=== PATIENT | male | born 1995 ===

== ENCOUNTER 2021-01-26 02:46 | Emergency (ER) | payer OTHER, SELFPAY ==
[2021-01-26 02:59] VITALS: BP 112/73; PULSE 74; RESP 16; TEMP 36.8; O2SAT 98; BMI 25.8
--- NOTE | 2021-01-26 03:12 | ED.CHESTPAIN ---
HPI - Chest Pain General Chief Complaint: General Medical Stated Complaint: Chest pain Time Seen by Provider: 01/26/21 02:57 Source: patient Mode of arrival: ambulatory Limitations: no limitations History of Present Illness HPI narrative: Patient with history of anxiety not taking any medication comes with with tingling sensation over the head left arm left leg and in the chest with chest pain patient does get this kind of feeling often for last few weeks has poor sleep a little anxious but no diagnosis has been made in the past. Patient does not smoke , no cocaine use no family history of coronary artery disease patient denies any shortness of breath no nausea or vomiting MD complaint: chest discomfort Related Data Previous Rx's Medication Instructions Recorded lorazepam [Ativan] 1 mg PO BEDTIME PRN #10 tab 01/26/21 Allergies Allergy/AdvReac Type Severity Reaction Status Date / Time No Known Allergies Allergy Unverified 06/25/20 19:29 [No Known Allergies*] Review of Systems Review of Systems: Constitutional : No Weight loss, No Fever, No Chills ENT/Mouth : No sore throat, No Rhinorrhea Eyes: No Eye Pain, No Swelling Cardiovascular : + Chest Pain, no palpitations Respiratory : No Cough, No Sputum, no shortness of breath Gastrointestinal : no Nausea, No Vomiting, No Diarrhea, No abdominal Pain, no black stools Genitourinary : No Dysuria, No Urinary Frequency Musculoskeletal : No joint pain, No Myalgias, No Joint Swelling Skin : No Skin Lesions, No rash Neuro : No Weakness, No Numbness, No Dizziness, No Headache Psych : No Anxiety/Panic, No Depression Heme/Lymph: No Bruising, No Lymphadenopathy Endocrine : No Polyuria, No Polydipsia All other systems reviewed and are negative [facility] Social History Social History Advance Directives: No Physical Exam Vital Signs: Vital Signs: Last Vital Signs Temp 98.3 F 01/26/21 02:59 Pulse 74 01/26/21 02:59 Resp 16 01/26/21 02:59 BP 112/73 01/26/21 02:59 Pulse Ox 98 01/26/21 02:59 Body Mass Index 25.8 Appearance: Alert. Oriented X3. No acute distress. Anxious Eyes: Pupils equal, round and reactive to light. ENT: Pharynx normal. Neck: Normal inspection. Neck supple. CVS: Normal heart rate and rhythm. Pulses normal. Respiratory: No respiratory distress. Breath sounds normal. Abdomen: Soft and nontender. Bowel sounds are present, no mass palpable, no CVA tenderness Skin: Skin warm and dry. Normal skin color. Normal skin turgor. Extremities: No lower extremity edema. Neuro: Oriented X 3. No motor deficit. No sensory deficit. MDM - Chest Pain MDM Narrative Medical decision making narrative: Patient's anxiety atypical chest pain with tingling all over the left side of the body EKG normal will prescribe him Ativan advised to follow with PCP ECG Data ECG #1: Attestation: I personally reviewed and interpreted this ECG as follows: Interpretation: Normal sinus rhythm heart rate 66 beats per minute normal intervals normal axis early repolarization changes no acute ischemia Discharge Plan Discharge Clinical Impression: Anxiety Chest pain Qualifiers: Chest pain type: unspecified Qualified Code(s): R07.9 - Chest pain, unspecified Patient Disposition: Home, Self-Care Instructions: Chest Pain (ED), Anxiety (ED) Additional Instructions: Take medication to relax in the night. Follow with PCP for any concern Your chest pain and symptoms are likely from anxiety Prescriptions: New lorazepam [Ativan] 1 mg tablet 1 mg PO BEDTIME PRN (Reason: anxiety) Qty: 10 RF: 0
--- NOTE | 2021-01-26 03:20 | ECG_ITS ---
Test Reason : CP Blood Pressure : / mmHG Vent. Rate : 066 BPM Atrial Rate : 066 BPM P-R Int : 198 ms QRS Dur : 076 ms QT Int : 374 ms P-R-T Axes : 066 085 052 degrees QTc Int : 392 ms Normal sinus rhythm Possible Left atrial enlargement Early repolarization Borderline ECG No previous ECGs available Referred By: Vargas Bucio Electronically Signed By:Michael Chong
[2021-01-26] MEDS: LORazepam 1 MG TABLET PO (03:36)
[2021-01-26 03:39] VITALS: PULSE 71; RESP 16
== END 2021-01-26 03:43 | disposition home or self-care (01) ==
LOC: HO.ED 03:25
PROVIDERS: Emergency Provider Internal Medicine
DX: R07.9 Chest pain, unspecified (principal); F41.9 Anxiety disorder, unspecified; Z91.14 Patient's other noncompliance with medication regimen
CPT/HCPCS: 93005; 99283; 99284

== ENCOUNTER 2023-03-23 17:07 | Emergency (ER) | payer BC, SELFPAY ==
[2023-03-23 17:10] VITALS: BP 136/74; PULSE 77; RESP 18; TEMP 36.9; O2SAT 97; BMI 25.1
--- NOTE | 2023-03-23 17:10 | ED.GENADULT ---
HPI - General Adult General Chief complaint: General Medical Stated complaint: leftsided stiffness..,neck back arm Time Seen by Provider: 03/23/23 18:37 Source: patient and family (Significant other) Mode of arrival: ambulatory History of Present Illness HPI narrative: 27-year-old male without significant past medical history presents for 2 months of intermittent numbness and tingling that affects the entire left side of his body to include the left side of his face over is a ear but this is not been associated with any unexplained weight loss, night sweats, fevers, chills, GI or symptoms. Patient denies any family history of early cardiac disease. Patient has been evaluated at his primary care provider's office, he has had a previous MRI which did not demonstrate any acute findings. Related Data Previous Rx's Medication Instructions Recorded lorazepam 1 mg tablet (Ativan) 1 mg PO BEDTIME PRN anxiety #10 01/26/21 tabs hydroxyzine HCl 25 mg tablet 25 mg PO TID PRN anxiety #14 tabs 03/23/23 Allergies Allergy/AdvReac Type Severity Reaction Status Date / Time No Known Allergies Allergy Unverified 06/25/20 19:29 [No Known Allergies*] Review of Systems Review of Systems: Pertinent positives and negatives as stated in HPI PMFSH Past Medical History Source: nursing notes reviewed Social History Social History Advance Directives: No Advance Directives Information Provided: No Physical Exam ED Vital Signs: Vital Signs - 24 hr 03/23/23 17:10 03/23/23 18:12 03/23/23 19:38 Temperature 98.4 F 98.4 F 98.2 F Pulse Rate 77 78 66 Respiratory Rate 18 18 18 Blood Pressure 136/74 117/79 110/76 Pulse Oximetry 97 97 97 Oxygen Delivery Method Room Air Room Air Room Air BMI result Body Mass Index 25.1 VITAL SIGNS: Reviewed. GENERAL: Well developed, well nourished, in no acute distress. HEAD: Normocephalic/atraumatic EYES: PERRLA, EOMI EARS: Ext canals without abnormality NOSE: Nares patent bilateral OROPHARYNX: no oral lesions noted, posterior pharynx clear NECK: Supple, no adenopathy LUNGS: Normal breath sounds. No adventitious sounds or accessory muscle use. SpO2<97> CARDIOVASCULAR: Regular rate and rhythm without noted murmurs, symmetrical peripheral pulses ABDOMEN: Soft, non-tender, non-distended with bowel sounds. MUSCULOSKELETAL: No tenderness, deformities, or effusions noted on gross inspection. EXTREMITIES: No cyanosis, clubbing or edema. SKIN: Inspection of the skin reveals no rashes NEUROLOGIC: Alert and oriented x 4. Strength and sensation to light touch were grossly intact x 4, no facial asymmetry, no pronator drift, cranial nerves 2-12 are grossly intact.. Course Course Course Narrative: This is a rapid medical exam. deferred additional HPI, ROS, PE to primary provider. 27 yo male with no known medical history here with shortness of breath, left arm/head/face/leg tingling/cramping intermittent 3 yrs. Has been seen at [facility] [place] [place] ED and for this. Per patient they found I had LVH on my EKG. Will obtain labs, EKG VSS Medical Decision Making Medical Decision Making MDM Narrative: Is a 27-year-old male with self endorsed history anxiety in comes in with complete left-sided numbness that is inconsistent with intracranial etiology given the involvement the entire left side of his head. His symptoms do come and go but he has not been able to identify or further been worked up for his anxiety. I reviewed all investigations and my interpretation is as patient has suffered from an anxiety attack, he will go home with a prescription of hydroxyzine and instructed to have more in-depth conversation with his primary care provider. Differential Diagnosis Please see the discussion above Lab Data Please see the discussion above 03/23/23 17:26 03/23/23 17:26 Labs: Lab Results 03/23/23 03/23/23 03/23/23 Range/Units 17:26 17:26 17:26 WBC 3.8 L (4.8-10.8) X10*3/uL RBC 4.73 (4.60-5.80) X10*6/uL Hgb 13.9 L (14.0-18.0) g/dl Hct 40.6 L (42.0-52.0) % MCV 85.8 (80.0-98.0) fL MCH 29.4 (27.0-33.0) pg MCHC 34.2 (31.0-36.0) g/dl RDW 12.1 (11.0-16.0) % Plt Count 257 (160-400) X10*3/uL MPV 9.7 (9.4-12.4) fL Immature Gran % (Auto) 0.3 (0.0-0.4) % Neut % (Auto) 47.0 (45-73) % Lymph % (Auto) 40.8 H (20-40) % [place] % (Auto) 8.7 (2-11) % Eos % (Auto) 2.1 (0-4) % Baso % (Auto) 1.1 (0-2) % Lymph # (Auto) 1.6 (1.2-4.9) X10*3/uL [place] # (Auto) 0.3 (0.1-1.2) X10*3/uL Eos # (Auto) 0.1 (0.0-0.4) X10*3/uL Baso # (Auto) 0.0 (0.0-0.2) X10*3/uL Abs Immat Gran (auto) 0.01 (0.00-0.03) X10*3/uL Absolute Neuts (auto) 1.8 L (2.0-8.3) x10*3/uL Absolute Nucleated RBC 0.000 (0.0-0.012) X10*3/uL Nucleated RBC % (auto) 0.0 (0.0-0.2) /100WBC PT (10.0-13.1) SEC INR (0.9-1.1) Sodium 139 (135-145) mmol/L Potassium 3.8 (3.3-5.1) mmol/L Chloride 104 (96-108) mmol/L Carbon Dioxide 23 (22-29) mmol/L Anion Gap 16 (12-20) BUN 12 (9-16) mg/dL Creatinine 0.92 (0.5-1.4) mg/dL Estim Creat Clear Calc 111.7 Estimated GFR > 60 Random Glucose 119 H (60-115) mg/dL Calcium 9.5 (8.4-10.2) mg/dL Magnesium 2.0 (1.6-2.6) mg/dL Total Bilirubin 0.6 (0.0-1.0) mg/dL Direct Bilirubin 0.1 (0.0-0.5) mg/dL AST 23 (5-37) U/L ALT 24 (0-40) U/L Alkaline Phosphatase 73 (39-117) U/L Troponin I High Sens < 2.7 (<3.5-35.0) ng/L Total Protein 7.4 (6.5-8.0) g/dL Albumin 4.3 (3.5-5.0) g/dL 03/23/23 Range/Units 17:26 WBC (4.8-10.8) X10*3/uL RBC (4.60-5.80) X10*6/uL Hgb (14.0-18.0) g/dl Hct (42.0-52.0) % MCV (80.0-98.0) fL MCH (27.0-33.0) pg MCHC (31.0-36.0) g/dl RDW (11.0-16.0) % Plt Count (160-400) X10*3/uL MPV (9.4-12.4) fL Immature Gran % (Auto) (0.0-0.4) % Neut % (Auto) (45-73) % Lymph % (Auto) (20-40) % [place] % (Auto) (2-11) % Eos % (Auto) (0-4) % Baso % (Auto) (0-2) % Lymph # (Auto) (1.2-4.9) X10*3/uL [place] # (Auto) (0.1-1.2) X10*3/uL Eos # (Auto) (0.0-0.4) X10*3/uL Baso # (Auto) (0.0-0.2) X10*3/uL Abs Immat Gran (auto) (0.00-0.03) X10*3/uL Absolute Neuts (auto) (2.0-8.3) x10*3/uL Absolute Nucleated RBC (0.0-0.012) X10*3/uL Nucleated RBC % (auto) (0.0-0.2) /100WBC PT 11.9 (10.0-13.1) SEC INR 1.0 (0.9-1.1) Sodium (135-145) mmol/L Potassium (3.3-5.1) mmol/L Chloride (96-108) mmol/L Carbon Dioxide (22-29) mmol/L Anion Gap (12-20) BUN (9-16) mg/dL Creatinine (0.5-1.4) mg/dL Estim Creat Clear Calc Estimated GFR Random Glucose (60-115) mg/dL Calcium (8.4-10.2) mg/dL Magnesium (1.6-2.6) mg/dL Total Bilirubin (0.0-1.0) mg/dL Direct Bilirubin (0.0-0.5) mg/dL AST (5-37) U/L ALT (0-40) U/L Alkaline Phosphatase (39-117) U/L Troponin I High Sens (<3.5-35.0) ng/L Total Protein (6.5-8.0) g/dL Albumin (3.5-5.0) g/dL Independent Interpretation I performed an independent interpretation of an: EKG Interpretation: Normal sinus rhythm, HR-74, no STEMI, MS/QRS/QTC is within normal limits. External Record Review External record reviewed: Prior outpatient labs Discharge Plan Discharge Clinical Impression: Anxiety Patient Disposition: Home, Self-Care Instructions: Anxiety (ED) Additional Instructions: 1. Follow up with your PCP in the next 1-2 days. Prescriptions: New hydroxyzine HCl 25 mg tablet 25 mg PO TID PRN (Reason: anxiety) Qty: 14 0RF No Action lorazepam [Ativan] 1 mg tablet 1 mg PO BEDTIME PRN (Reason: anxiety) Qty: 10 0RF Interventions: ED Discharge Assessment Last Done: 03/23/23 20:01 Discharge Date/Time: 03/23/23 20:05
--- NOTE | 2023-03-23 17:12 | ECG_ITS ---
Test Reason : l side weak Blood Pressure : / mmHG Vent. Rate : 074 BPM Atrial Rate : 074 BPM P-R Int : 180 ms QRS Dur : 076 ms QT Int : 358 ms P-R-T Axes : 071 081 045 degrees QTc Int : 397 ms Normal sinus rhythm Normal ECG When compared with ECG of 26-JAN-2021 02:54, No significant change was found Referred By: Alejandra Blackman Electronically Signed By:LEXY VALENTE MD
[2023-03-23 17:30] LABS: MANUAL DIFF FLAG NO
[2023-03-23 17:32] LABS: Basophils Percent Auto 1.1 % (0-2); Eosinophils Absolute Auto 0.1 X10*3/uL (0.0-0.4); Eosinophils Percent Auto 2.1 % (0-4); Hematocrit 40.6 % (42.0-52.0); Hemoglobin 13.9 g/dl (14.0-18.0); Imm Gran Abs Auto 0.01 X10*3/uL (0.00-0.03); Imm Gran Pct Auto 0.3 % (0.0-0.4); Lymphocytes Absolute Auto 1.6 X10*3/uL (1.2-4.9); Lymphocytes Percent Auto 40.8 % (20-40); Mean Corpuscular HGB Conc 34.2 g/dl (31.0-36.0); Mean Corpuscular Hemoglobin 29.4 pg (27.0-33.0); Mean Corpuscular Volume 85.8 fL (80.0-98.0); Mean Platelet Volume 9.7 fL (9.4-12.4); Monocytes Absolute Auto 0.3 X10*3/uL (0.1-1.2); Monocytes Percent Auto 8.7 % (2-11); Neutrophils Absolute Auto 1.8 x10*3/uL (2.0-8.3); Platelet Count 257 X10*3/uL (160-400); Red Blood Count 4.73 X10*6/uL (4.60-5.80); Red Cell Distribution Width 12.1 % (11.0-16.0); White Blood Count 3.8 X10*3/uL (4.8-10.8)
[2023-03-23 17:38] LABS: Prothrombin Time 11.9 SEC (10.0-13.1)
[2023-03-23 17:48] LABS: Alanine Aminotransferase 24 U/L (0-40); Albumin Level 4.3 g/dL (3.5-5.0); Alkaline Phosphatase 73 U/L (39-117); Anion Gap 16 (12-20); Aspartate Amino Transferase 23 U/L (5-37); Bilirubin Direct 0.1 mg/dL (0.0-0.5); Bilirubin Total 0.6 mg/dL (0.0-1.0); Blood Urea Nitrogen 12 mg/dL (9-16); Calcium 9.5 mg/dL (8.4-10.2); Carbon Dioxide 23 mmol/L (22-29); Chloride 104 mmol/L (96-108); Creatinine Clr Calc Pharmacy 111.7; Estimated Glomerular Filt Rate > 60; Glucose Random 119 mg/dL (60-115); Potassium 3.8 mmol/L (3.3-5.1); Sodium 139 mmol/L (135-145); Total Protein 7.4 g/dL (6.5-8.0)
[2023-03-23 17:58] LABS: Troponin-I High Sensitivity < 2.7 ng/L (<3.5-35.0)
[2023-03-23 18:12] VITALS: BP 117/79; PULSE 78; RESP 18; TEMP 36.9; O2SAT 97
[2023-03-23 19:38] VITALS: BP 110/76; PULSE 66; RESP 18; TEMP 36.8; O2SAT 97
== END 2023-03-23 20:05 | disposition home or self-care (01) ==
PROVIDERS: Nurse Practitioner Family; Emergency Provider Student in an Organized Health Care Education/Training Program
DX: F41.1 Generalized anxiety disorder (principal); F43.0 Acute stress reaction; R53.1 Weakness; Z79.899 Other long term (current) drug therapy
CPT/HCPCS: 36415; 80048; 80076; 83735; 84484; 85025; 85610; 93005; 99283; 99284

== ENCOUNTER 2023-03-24 01:46 | Emergency (ER) | payer BC, SELFPAY ==
[2023-03-24 01:53] VITALS: BP 121/75; PULSE 68; RESP 18; TEMP 36.6; O2SAT 97; BMI 25.1
--- NOTE | 2023-03-24 02:03 | ED.ALLEREA ---
HPI - Allergic Reaction General Chief complaint: Allergic Reaction Stated complaint: Allergic reaction Time Seen by Provider: 03/24/23 01:57 Source: patient Mode of arrival: ambulatory Limitations: no limitations History of Present Illness HPI narrative: Patient allergic to apples but had grapes around 22:00 went to sleep, at 01:00 woke up with swelling of the eyes with itching on the face no shortness of breath feels slight tightness in the throat no rash lips and tongue normal patient never had allergic reaction to grapes in the past Related Data Previous Rx's Medication Instructions Recorded lorazepam 1 mg tablet (Ativan) 1 mg PO BEDTIME PRN anxiety #10 01/26/21 tabs hydroxyzine HCl 25 mg tablet 25 mg PO TID PRN anxiety #14 tabs 03/23/23 diphenhydramine HCl 25 mg capsule 50 mg PO TID PRN allergic reaction 03/24/23 (Benadryl) #30 caps prednisone 20 mg tablet 40 mg PO DAILY #10 tabs 03/24/23 Allergies Allergy/AdvReac Type Severity Reaction Status Date / Time No Known Allergies Allergy Unverified 06/25/20 19:29 [No Known Allergies*] Review of Systems Review of Systems: Yes all other systems are reviewed and are negative [facility] Social History Social History Alcohol intake: never Smoked in Last 30 Days: No Use of substances other than those prescribed or required for medical reasons: No Advance Directives: No Advance Directives Information Provided: No Physical Exam ED Vital Signs: Vital Signs - 24 hr 03/24/23 01:53 03/24/23 02:23 Temperature 98 F 97.7 F Pulse Rate 68 77 Respiratory Rate 18 16 Blood Pressure 121/75 135/77 Pulse Oximetry 97 99 Oxygen Delivery Method Room Air Room Air BMI result Body Mass Index 25.1 Appearance: Alert. Oriented X3. No acute distress. Eyes: Puffiness around the eyes ENT: Pharynx normal. Oral Mucosa moist lips and tongue normal uvula normal Neck: Normal inspection. Neck supple. CVS: Normal heart rate and rhythm. Pulses normal. Respiratory: No respiratory distress. Equal air entry bilateral, no wheezing/rales/rhonchi Abdomen: Soft and nontender. Bowel sounds are present, Skin: Skin warm and dry. Normal skin color. Normal skin turgor. Neuro: Oriented X 3. Medications Administered Discontinued Medications Generic Name Dose Route Start Last Admin Trade Name Freq PRN Reason Stop Dose Admin Dexamethasone 10 mg 03/24/23 02:06 03/24/23 02:18 Dexamethasone 2 Mg Tablet PO 03/24/23 02:07 10 mg ONCE ONE Administration Diphenhydramine HCl 50 mg 03/24/23 01:57 03/24/23 02:19 Diphenhydramine Hcl 25 Mg Capsule PO 03/24/23 01:58 50 mg ONCE ONE Administration Famotidine 20 mg 03/24/23 02:06 03/24/23 02:19 Famotidine 20 Mg Tablet PO 03/24/23 02:07 20 mg ONCE ONE Administration Medical Decision Making Medical Decision Making [facility] Narrative: Patient with mild allergic reaction to? Grapes improved after Benadryl and steroids discharge patient home Discharge Plan Discharge Clinical Impression: Allergic reaction Patient Disposition: Home, Self-Care Instructions: Food Allergy (ED) Additional Instructions: It is possible you are allergic to Grapes. Follow with PCP for allergy testing Do not eat grapes if your allergic to it Take Benadryl 50 mg every 6 hours as needed Prednisone as prescribed Report to the ER if worsening of the rash or tongue/lip swelling or difficulty in breathing Prescriptions: New prednisone 20 mg tablet 40 mg PO DAILY Qty: 10 0RF diphenhydramine HCl [Benadryl] 25 mg capsule 50 mg PO TID PRN (Reason: allergic reaction) Qty: 30 0RF No Action lorazepam [Ativan] 1 mg tablet 1 mg PO BEDTIME PRN (Reason: anxiety) Qty: 10 0RF hydroxyzine HCl 25 mg tablet 25 mg PO TID PRN (Reason: anxiety) Qty: 14 0RF Stand Alone Forms: Work/School Release Interventions: ED Discharge Assessment Last Done: 03/24/23 02:58 Discharge Date/Time: 03/24/23 03:06
[2023-03-24] MEDS: dexAMETHasone 2 MG TABLET 10 MG PO (02:18)
[2023-03-24] MEDS: Famotidine 20 MG TABLET PO (02:19)
[2023-03-24] MEDS: diphenhydrAMINE HCL 25 MG CAPSULE 50 MG PO (02:19)
[2023-03-24 02:23] VITALS: BP 135/77; PULSE 77; RESP 16; TEMP 36.5; O2SAT 99
--- NOTE | 2023-03-24 02:31 | PC.NURSE ---
patient in the bed with eyes open patient vitals are stable patient received all medications with no issues patient is AAOX4 patient will continue to be monitored for safety
--- NOTE | 2023-03-24 02:57 | PC.NURSE ---
patient in then process of being discharged patient was aware
== END 2023-03-24 03:06 | disposition home or self-care (01) ==
PROVIDERS: Emergency Provider Internal Medicine
DX: L50.0 Allergic urticaria (principal)
CPT/HCPCS: 99283; 99284; J8540